=== PATIENT | male | born 1985 | race Caucasian/White ===

== ENCOUNTER 2019-01-12 09:55 | Inpatient (IN) | payer OTHER ==
[~2019-01-12] VITALS: Ht 193 cm; Wt 118.0 kg
[2019-01-12] MEDS ORDERED: BACT800T5 PO (10:16)
[2019-01-12] MEDS ORDERED: NS 1,000 ML IV ONE (10:45)
[2019-01-12] MEDS ORDERED: MORPHINE 4 MG/ML 1ML VIAL/SYRINGE (J2270) IV ONE (10:45)
[2019-01-12 11:18] LABS: BASO # 0.1 10^3/uL (0.0-0.2); BASO % 0.6 % (0.0-1.0); EOS # 0.5 10^3/uL (0.0-0.50); EOS % 4.9 % (0.0-3.0); HEMATOCRIT 44.5 % (42.0-52.0); HEMOGLOBIN 15.4 g/dl (13.5-17.5); LYMPH # 1.3 10^3/uL (1.5-4.5); LYMPH % 12.3 % (24.0-44.0); MEAN CORPUSCULAR HEMOGLOBIN 30.5 pg (27.0-33.0); MEAN CORPUSCULAR HGB CONC 34.6 g/dl (32.0-36.5); MEAN CORPUSCULAR VOLUME 88.1 fl (80.0-96.0); MONO # 0.8 10^3/uL (0.0-0.8); MONO % 7.8 % (0.0-5.0); NEUTROPHILS % 74.2 % (36.0-66.0); PLATELET COUNT, AUTOMATED 236 10^3/uL (150-450); RED BLOOD COUNT 5.05 10^6/uL (4.30-6.10); WHITE BLOOD COUNT 10.8 10^3/uL (4.0-10.0)
--- NOTE | 2019-01-12 11:19 | REP ---
Right elbow for views: I suspect soft tissue edema posteriorly. This should be confirmed clinically. There is no joint effusion. Mineralization and joint spaces are normal. There is no fracture or dislocation. There are are degenerative calcifications in the distal triceps tendon at its insertion on the olecranon. Impression: Probable soft tissue edema posteriorly. Please confirm clinically. Degenerative calcifications in the distal triceps tendon Electronically Signed by Thomas Randall MD 01/12/2019 11:10 A
[2019-01-12 11:42] LABS: BLOOD UREA NITROGEN 17 MG/DL (7-18); C REACTIVE PROTEIN QUANTITATIV 5.23 MG/DL (0.00-0.30); CALCIUM LEVEL 8.6 MG/DL (8.5-10.1); CARBON DIOXIDE LEVEL 27 MEQ/L (21-32); CHLORIDE LEVEL 105 MEQ/L (98-107); CREATININE FOR GFR 1.22 MG/DL (0.70-1.30); GLOMERULAR FILTRATION RATE > 60.0 (>60); GLUCOSE, FASTING 94 MG/DL (70-100); POTASSIUM SERUM 4.1 MEQ/L (3.5-5.1); SODIUM LEVEL 136 MEQ/L (136-145)
[2019-01-12] MEDS ORDERED: VANCOMYCIN HCL 1,000 MG, VIAL MATE ADAPTER 1 EACH in D5W 250 ML IV ONE (12:30)
[2019-01-12 12:46] LABS: ERYTHROCYTE SEDIMENTATION RATE 10 mm/hr (0-15)
[2019-01-12] MEDS ORDERED: KETOROLAC 30 MG/ML VIAL (J1885) IV ONE (13:15)
[2019-01-12 14:43] VITALS: BP 130/63
--- NOTE | 2019-01-12 15:05 | HPEPDOC ---
General Date of Admission Jan 12, 2019 at 13:11 Chief Complaint The patient is a 33-year-old male admitted with a reason for visit of Celluitis Of Rt Elbow Olecranon Bursitis Of Rt Elb. Source: Patient Exam Limitations: No limitations History of Present Illness The patient is a 33 -year-old gentleman who presents to the ER with complains of right elbow pain, swelling, erythema. He reports that last week he had a superficial rash/eczema-like appearance to the right elbow. On Thursday night, he reports waking up with significant pain in his right elbow. He noticed some associated redness. He took a couple of these. He will come the next morning and did not feel right. [place] as having [place] and started on Bactrim as well as Motrin. He reports he has taken 3 doses of Bactrim so far. However, the pain, swelling as well as erythema had progressed since yesterday. The patient had persistent over 10 in intensity, dull, constant, throbbing at times. Reports associated warmth to touch. He does not have a restriction of range of motion he reports, however, reports that he has to move his elbow slow ly otherwise it hurts. Denies any associated fevers/chills or sweats. He did have some nausea this morning but no vomiting. No chest pain/shortness of breath/cough/dizziness/lightheadedness. No change in his bladder or bowel habits. No skin rash elsewhere. Home Medications Scheduled Sulfamethoxazole/Trimethoprim (Bactrim Ds Tablet) 1 Each Tablet, 1 TAB PO BID, (Reported) Allergies Coded Allergies: FISH (Verified Allergy, Severe, THROAT SWELLS,RASH,ITCHY, 01/12/19) amoxicillin (Verified Allergy, Unknown, 01/12/19) Past Medical History Medical History None Surgical History None Family History Father has rheumatoid arthritis Social History * Smoker: Denies Alcohol: occationally Drugs: denies Review of Systems Other systems Negative for 10 systems except as noted under history of present illness Physical Examination General Exam: Positive: Alert, Cooperative, No Acute Distress Eye Exam: Positive: PERRLA ENT Exam: Positive: Mucous membr. moist/pink Chest Exam: Positive: Clear to auscultation, Normal air movement Heart Exam: Positive: Rate Normal, Normal S1, Normal S2 Abdomen Exam: Positive: Soft, Other (nontender) Extremity Exam: Positive: Other (right elbow erythema, warmth. Area of erythema has been marked out8 seems to extend beyond the original he marked area. No fluctuance noted. Tender to touch.) Neuro Exam: Positive: Other (awake, alert, oriented 3. Moving all 4 extremities.) Psych Exam: Positive: Mental status NL Vital Signs Vital Signs Date Time Temp Pulse Resp B/P (MAP) Pulse Ox O2 Delivery O2 Flow Rate FiO2 01/12/19 13:53 99.6 88 17 120/69 (86) 100 Room Air Laboratory Data Labs 24H Laboratory Tests 2 01/12/19 10:49: Immature Granulocyte % (Auto) 0.2, White Blood Count 10.8H, Red Blood Count 5.05, Hemoglobin 15.4, Hematocrit 44.5, Mean Corpuscular Volume 88.1, Mean Corpuscular Hemoglobin 30.5, Mean Corpuscular Hemoglobin Concent 34.6, Red Cell Distribution Width 12.4, Platelet Count 236, Neutrophils (%) (Auto) 74.2H, Lymphocytes (%) (Auto) 12.3L, Monocytes (%) (Auto) 7.8H, Eosinophils (%) (Auto) 4.9H, Basophils (%) (Auto) 0.6, Neutrophils # (Auto) 8.0H, Lymphocytes # (Auto) 1.3L, Monocytes # (Auto) 0.8, Eosinophils # (Auto) 0.5, Basophils # (Auto) 0.1, Nucleated Red Blood Cells % (auto) 0.0, Erythrocyte Sedimentation Rate 10, Anion Gap 4L, Glomerular Filtration Rate > 60.0, Lactic Acid Level 1.0, Blood Urea Nitrogen 17, Creatinine 1.22, Sodium Level 136, Potassium Level 4.1, Chloride Level 105, Carbon Dioxide Level 27, Calcium Level 8.6, C-Reactive Protein, Quantitative 5.23H CBC/BMP Laboratory Tests 01/12/19 10:49 Red Blood Count 5.05, Mean Corpuscular Volume 88.1, Mean Corpuscular Hemoglobin 30.5, Mean Corpuscular Hemoglobin Concent 34.6, Red Cell Distribution Width 12.4, Neutrophils (%) (Auto) 74.2 H, Lymphocytes (%) (Auto) 12.3 L, Monocytes (%) (Auto) 7.8 H, Eosinophils (%) (Auto) 4.9 H, Basophils (%) (Auto) 0.6, Neutrophils # (Auto) 8.0 H, Lymphocytes # (Auto) 1.3 L, Monocytes # (Auto) 0.8, Eosinophils # (Auto) 0.5, Basophils # (Auto) 0.1, Calcium Level 8.6 Microbiology Microbiology 01/12/19 Blood Culture, Received Pending 01/12/19 Blood Culture, Received Pending RAD Interpretation STUDY: right elbow x-ray: Soft tissue edema posteriorly. Degenerative calcifications in triceps tendon. Assessment/Plan Right elbow olecranon bursitis with associated cellulitis with failed outpatient treatment: -IV vancomycin per pharmacy dosing -Call out to orthopedicswill request to see if patient needs any aspiration -Advised elevation -Toradol for pain and inflammation -Elbow x-ray does not show any involvement of bone and ESR is normal -Acetaminophen as needed for fever/pain DVT prophylaxis: -SCDs CODE STATUS: -Full code per my discussion with the patient Disposition: -Admit as an inpatient to general medical floor for further treatment of his right olecranon bursitis with cellulitis with failed outpatient treatment. Anticipated length of stay more than 2 midnights. Anticipate eventual discharge home once medically stable. Plan / VTE VTE Prophylaxis Ordered?: Yes VTE Exclusion Pharmacological: At Low Risk for VTE MARI STARKS MD Jan 12, 2019 15:05
[2019-01-12] MEDS: ACETAMINOPHEN TAB 650MG DOSE (2X325MG) PO PRN ×2 (16:18→22:37)
--- NOTE | 2019-01-12 16:50 | CR ---
DATE OF CONSULTATION: 01/12/2019 CHIEF COMPLAINT: Right elbow pain. HISTORY OF PRESENT ILLNESS: This is a 33-year-old gentleman who has had right elbow pain, swelling and erythema for the past two days. He denies any injury or insect bite. He did note that he had a superficial rash or eczema on the elbow. Then on Thursday night, he had significant pain and redness. The following morning, he went to urgent care and was started on Bactrim. He had taken three doses of Bactrim without any improvement and the pain, swelling and erythema have progressed. He presented to the emergency room (ER) today. He was given vancomycin in the emergency room and states that already since that dose of vancomycin the pain, swelling and erythema is starting to come down. He has had some nausea and chills. No shortness of breath. ALLERGIES: FISH and AMOXICILLIN. PAST MEDICAL HISTORY: None. PAST SURGICAL HISTORY: None. SOCIAL HISTORY: The patient does not smoke cigarettes. He occasionally drinks alcohol. PHYSICAL EXAMINATION: GENERAL: Well-appearing, alert and oriented times three, in no acute distress. VITAL SIGNS: Temperature 99.6, heart rate 88, respiratory rate 17, blood pressure 120/69, oxygen 100% on room air. PULMONARY: Regular, nonlabored breathing. CARDIOVASCULAR: Regular rate and rhythm. ABDOMEN: Soft, nontender. MUSCULOSKELETAL: In the right elbow, there is erythema over the posterior aspect of the elbow including the olecranon. There is tenderness over the olecranon and moderate olecranon bursitis. The erythema does seem to be decreasing from what was previously marked out. The patient has some stiffness with flexion and extension and relatively mild pain. He has no pain with pronation or supination. Normal sensation to light touch in the medial, ulnar and radial distribution. Palpable radial pulse. Intact flexion and extension of the wrist. LABORATORY DATA: White blood cell count 10.8, ESR 10, CRP 5.23. IMAGING: Right elbow x-ray shows soft tissue edema posteriorly and some calcification in the triceps tendon. However, no fracture or other obvious pathology. IMPRESSION: Right olecranon bursitis with associated cellulitis. PLAN: The patient is already improving on IV vancomycin. I would continue this. Trend the C-reactive protein (CRP) to make sure it is going in the right direction and monitor the patient's examination. At this point, I would avoid any aspiration of the elbow or bursa as this does not seem to be an actual septic elbow joint. The bursitis seems to be relatively mild as well. We will follow the patient to make sure that he continues to improve with IV antibiotics.
[2019-01-12] MEDS: KETOROLAC 30 MG/ML VIAL (J1885) IV PRN (18:49)
[2019-01-12 22:00] VITALS: BP 131/72
[2019-01-12] MEDS: traMADol 50 MG TAB PO PRN (23:57)
[2019-01-13] MEDS: KETOROLAC 30 MG/ML VIAL (J1885) IV PRN ×4 (01:01→21:01)
[2019-01-13 06:00] VITALS: BP 131/62
[2019-01-13 06:37] LABS: HEMOGLOBIN 14.3 g/dl (13.5-17.5); MEAN CORPUSCULAR HEMOGLOBIN 30.8 pg (27.0-33.0); MEAN CORPUSCULAR HGB CONC 34.9 g/dl (32.0-36.5); MEAN CORPUSCULAR VOLUME 88.4 fl (80.0-96.0); PLATELET COUNT, AUTOMATED 203 10^3/uL (150-450); RED BLOOD COUNT 4.64 10^6/uL (4.30-6.10); WHITE BLOOD COUNT 11.3 10^3/uL (4.0-10.0)
[2019-01-13 07:05] LABS: ALBUMIN 3.6 GM/DL (3.2-5.2); ALT/SGPT 34 U/L (12-78); BILIRUBIN,TOTAL 1.2 MG/DL (0.2-1.0); BLOOD UREA NITROGEN 13 MG/DL (7-18); CALCIUM LEVEL 8.2 MG/DL (8.5-10.1); CARBON DIOXIDE LEVEL 25 MEQ/L (21-32); CHLORIDE LEVEL 108 MEQ/L (98-107); CREATININE FOR GFR 1.08 MG/DL (0.70-1.30); GLOMERULAR FILTRATION RATE > 60.0 (>60); GLUCOSE, FASTING 111 MG/DL (70-100); MAGNESIUM LEVEL 2.2 MG/DL (1.8-2.4); SODIUM LEVEL 138 MEQ/L (136-145); TOTAL PROTEIN 7.2 GM/DL (6.4-8.2)
[2019-01-13] MEDS: traMADol 50 MG TAB PO PRN (12:10)
--- NOTE | 2019-01-13 13:36 | PHACANCOPD ---
PHARMACY VANCOMYCIN DOSING Pt Demographics Demographics Patient Age:33 , Weight:118.000 , Gender: male Adjusted Body Weight Date: 01/13/19, Adjusted Body Weight: [99] Kg Events Past 24 Hours Events Past 24 Hours: NO: Dialysis, Diuretic Therapy, Change in CrCl, Fever, Elevation in WBC, Pending Diagnostics, Pending Procedures, Other Vancomycin Vancomycin indication: RIGHT ELBOW OLECRANON BURSITIS AND CELLULITIS WITH FAILED RX Vancomycin Target Ranges: 10-20 mcg/ml Vancomycin Load Y/N: Yes Load Dose Date Time Vancomycin Load Dose: Date: Time: Vancomycin Dose Date: 01/13/19. Current Vancomycin Dose: [1G IV Q8H] Intermittent Dosing?: No Labs Labs Item Value Date Time White Blood Count 10.8 10^3/uL H 01/12/19 1049 White Blood Count 11.3 10^3/uL H 01/13/19 0615 Neutrophils # (Auto) 8.0 10^3/uL H 01/12/19 1049 Creatinine 1.22 MG/DL 01/12/19 1049 Creatinine 1.08 MG/DL 01/13/19 0615 C-Reactive Protein, Quantitative 11.40 MG/DL H 01/13/19 0615 C-Reactive Protein, Quantitative 5.23 MG/DL H 01/12/19 1049 Micro Microbiology 01/12/19 Blood Culture - Preliminary, Resulted No growth after 24 hours . All specim... 01/12/19 Blood Culture - Preliminary, Resulted No growth after 24 hours . All specim... Creatinine Clearance Date:01/13/19. Creatinine Clearance: [117ML/MIN]. Pending Labs VANCOMYCIN TROUGH 01/14/19 @1300 Assessment and Plan Maintaining Current Dose?: Yes Reason for dose change: No Dose Change Pharmacist Note Pharmacist Note Date: 01/13/19. Pharmacist note: PT is a 33 year old male being treated with vancomycin for right elbo bursitis and cellulitis. The patient has not been treated with vancomycin here in the past. 1g vancomycin was administered 01/12 @ 13 in the ER. The patient will receive 2g vancomycin iv today @14. Maintenance therapy will consist of 1g iv every 8 hours. A trough is scheduled for 01/14 @ 13:00. We will continue to monitor and adjust the dose as needed. JEFRY LUCIA PHARMACY Jan 13, 2019 13:36
[2019-01-13 14:00] VITALS: BP 137/78
--- NOTE | 2019-01-13 14:12 | IPNPDOC ---
Date Seen The patient was seen on 01/13/19. Progress Note SUBJECTIVE: 33-year-old male presented with right elbow swelling, erythema and pain failed treatment for cellulitis as outpatient. Interval history: Patient reported feeling still generalized ill today but states that his elbow appear to be slightly better than yesterday. Still has significant pain with movement of elbow and erythema surrounding right olecranon. Tmax 99.7 overnight. OBJECTIVE PHYSICAL EXAMINATION: VITAL SIGNS: Please see below. General: No acute distress, Alert Eyes: Normal sclera, EOMI, NIDHI HENT: Atraumatic, neck supple, moist mucous membranes Cardiovascular: Normal rate, normal rhythm. No murmurs appreciated. Pulmonary: Clear to auscultation b/l, no wheezing GI: Soft, nontender, nondistended Skin: Warm and dry Neuro: CN grossly intact. No focal deficits. Strengths equal b/l. Psych: oriented x 3 LABORATORY DATA, IMAGING STUDIES, MICROBIOLOGY: Please see below. DVT prophylaxis ordered?: MANAN ASSESSMENT AND PLAN: Right elbow olecranon bursitis with associated cellulitis failed outpatient treatment: - c/w IV vancomycin. Appear to be improving. - Evaluated by ortho. No surgical intervention/aspiration recommended at this time. - Will keep elbow elevated, c/w supportive care. -Toradol for pain and inflammation - Elbow x-ray does not show any involvement of bone. - CRP trending up but clinically improving. Continue to monitor for now. -Acetaminophen as needed for fever/pain DVT prophylaxis: -SCDs CODE STATUS: FULL CODE Disposition: -Admit as an inpatient to general medical floor for further treatment of his right olecranon bursitis with cellulitis with failed outpatient treatment. Anticipated length of stay more than 2 midnights. Anticipate eventual discharge home once medically stable. VS, I&O, 24H, Fishbone Vital Signs/I&O Vital Signs Date Time Temp Pulse Resp B/P (MAP) Pulse Ox O2 Delivery O2 Flow Rate FiO2 01/13/19 12:40 18 01/13/19 06:00 99.6 72 131/62 (85) 94 01/12/19 13:53 Room Air I&O- Last 24 Hours up to 6 AM 01/13/19 06:00 Intake Total 2210 ml Output Total 1400 ml Balance 810 ml Laboratory Data 24H LABS Laboratory Tests 2 01/13/19 06:15: Nucleated Red Blood Cells % (auto) 0.0, Anion Gap 5L, Glomerular Filtration Rate > 60.0, Blood Urea Nitrogen 13, Creatinine 1.08, Sodium Level 138, Potassium Level 4.0, Chloride Level 108H, Carbon Dioxide Level 25, Calcium Level 8.2L, Aspartate Amino Transf (AST/SGOT) 25, Alanine Aminotransferase (ALT/SGPT) 34, Alkaline Phosphatase 52, Total Bilirubin 1.2H, Total Protein 7.2, Albumin 3.6, M agnesium Level 2.2, C-Reactive Protein, Quantitative 11.40H, Albumin/Globulin Ratio 1.00 CBC/BMP Laboratory Tests 01/13/19 06:15 Red Blood Count 4.64, Mean Corpuscular Volume 88.4, Mean Corpuscular Hemoglobin 30.8, Mean Corpuscular Hemoglobin Concent 34.9, Red Cell Distribution Width 12.4, Calcium Level 8.2 L, Aspartate Amino Transf (AST/SGOT) 25, Alanine Aminotransferase (ALT/SGPT) 34, Alkaline Phosphatase 52, Total Bilirubin 1.2 H, Total Protein 7.2, Albumin 3.6 Microbiology Microbiology 01/12/19 Blood Culture - Preliminary, Resulted No growth after 24 hours . All specim... 01/12/19 Blood Culture - Preliminary, Resulted No growth after 24 hours . All specim... MIGUE FRANK MD Jan 13, 2019 14:12
[2019-01-13] MEDS: VANCOMYCIN HCL 1,000 MG, VIAL MATE ADAPTER 1 EACH in D5W 250 ML IV SCH ×2 (14:17→21:11)
[2019-01-13] MEDS ORDERED: VANCOMYCIN HCL 1,000 MG, VIAL MATE ADAPTER 1 EACH in D5W 250 ML IV ONE (15:00)
[2019-01-13] MEDS: ACETAMINOPHEN TAB 650MG DOSE (2X325MG) PO PRN (17:16)
[2019-01-13 22:00] VITALS: BP 156/100
[2019-01-14] MEDS: KETOROLAC 30 MG/ML VIAL (J1885) IV PRN ×4 (03:42→22:54)
[2019-01-14 06:00] VITALS: BP 134/77
[2019-01-14] MEDS: VANCOMYCIN HCL 1,000 MG, VIAL MATE ADAPTER 1 EACH in D5W 250 ML IV SCH ×3 (06:09→21:43)
[2019-01-14 06:49] LABS: HEMATOCRIT 38.9 % (42.0-52.0); HEMOGLOBIN 13.6 g/dl (13.5-17.5); MEAN CORPUSCULAR HEMOGLOBIN 30.8 pg (27.0-33.0); MEAN CORPUSCULAR VOLUME 88.2 fl (80.0-96.0); PLATELET COUNT, AUTOMATED 210 10^3/uL (150-450); RED BLOOD COUNT 4.41 10^6/uL (4.30-6.10); WHITE BLOOD COUNT 10.4 10^3/uL (4.0-10.0)
[2019-01-14 07:02] LABS: BLOOD UREA NITROGEN 15 MG/DL (7-18); CALCIUM LEVEL 8.4 MG/DL (8.5-10.1); CARBON DIOXIDE LEVEL 25 MEQ/L (21-32); CHLORIDE LEVEL 108 MEQ/L (98-107); CREATININE FOR GFR 1.18 MG/DL (0.70-1.30); GLOMERULAR FILTRATION RATE > 60.0 (>60); GLUCOSE, FASTING 104 MG/DL (70-100); SODIUM LEVEL 139 MEQ/L (136-145)
[2019-01-14] MEDS ORDERED: LIDOCAINE 1% MDV 20ML VIAL SC ONE (13:30)
[2019-01-14 14:00] VITALS: BP 153/80
[2019-01-14] MEDS: traMADol 50 MG TAB PO PRN (14:20)
--- NOTE | 2019-01-14 14:47 | CR ---
DATE OF CONSULTATION: 01/14/[address] Rehman, hospitalist. Chief complaint is right elbow redness and discomfort and warmth. 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 He presented to an urgent care, then was admitted here as an inpatient I believe 01/12/2019 for possible cellulitis and possible olecranon bursitis. He has been afebrile. He has been responding to vancomycin. The patient is ALLERGIC to AMOXICILLIN. I was asked see him today because he felt like there was some increased warmth and that although the area of redness had not changed he indicated that it looked to be a little bit more red. On exam, he is an otherwise healthy gentleman in no acute distress. He is not diaphoretic. He moves his elbow completely normally. He has an area of redness that I mapped out around the posterior aspect of his distal upper arm, around to his medial and lateral elbow and then down into his proximal forearm. He has some fluctuance in his olecranon bursa but there does not appear to be an effusion of his elbow per se with no discomfort and range of motion of the elbow. He is somewhat tender over his olecranon bursa. There is no drainage, but he has a small patch of eczema over the elbow. He wonders if that could of have been the source. There is no streaking up and down the arm. There is no crepitance or any evidence of any air in the tissues. This appears to be an infected olecranon bursitis with some associated cellulitis. The patient was previously seen by Dr. Rosas. There were x-rays obtained, and this according to the report showed some soft tissue edema, some calcification of the triceps. His labs have indicated a white count of 10.8 on 01/12/2019, 11.3 yesterday, and 10.4 today. His sed rate was 10 on 01/12/2019. His CRP was 5.23 on admission, 11.4 yesterday, and down to 10.5 today. His vancomycin trough appears to be low, and would have that adjusted by the medical service or the pharmacy. He is currently getting vancomycin 1 gram every 8. He has remained afebrile throughout his hospital stay with the highest temperature being 99.7, earlier today it was 98.5. His pulse is 60, blood pressure 134/77, so there is no sign of sepsis. Certainly does not appear to be ill. Impression is likely septic olecranon bursitis with some cellulitis. Recommendations: I have suggested that we aspirate fluid off the olecranon bursa, which can often not only make the patient feel better but can help us decrease the bacterial load and hopefully assist in a diagnosis of organism. As of this point, we have negative blood cultures. I obtained consent from the patient for the aspiration, and under sterile conditions aspirated off about 5 mL of primarily serosanguineous, slightly cloudy fluid from his olecranon bursa after numbing it up with some lidocaine. This will be sent off for grams stain culture, aerobic, anaerobic. The patient got immediate release after decompressing this area with this fluid. IMPRESSION: Olecranon bursitis with cellulitis infected. RECOMMENDATIONS At this point, we will await for the gram stain cultures. I did not see any need for cell count as I do not think it would add anything to the picture here as this is not a joint fluid analysis. Would continue with IV antibiotics and would consider adding a secondary agent, but would leave that up to the discretion of the hospitalists. Would recommend K-Pad K heat, which I have added to the orders and discussed with the nurse, and would recommend elevation on a pillow. If this worsens or the redness spreads, please contact us immediately. If he develops fevers, we should be notified. Certainly if he develops pain with range of motion of his elbow or any evidence of infection of the elbow joint, we should be notified. I have also signed off this case to the covering team that starts at 5 p.m. today. Thank you for the consult.
--- NOTE | 2019-01-14 14:47 | PHACANCOPD ---
PHARMACY VANCOMYCIN DOSING Pt Demographics Demographics Patient Age:33 , Weight:118.000 , Gender: male Adjusted Body Weight Date: 01/13/19, Adjusted Body Weight: [99] Kg Vancomycin Vancomycin indication: RIGHT ELBOW OLECRANON BURSITIS AND CELLULITIS WITH FAILED RX Vancomycin Target Ranges: 10-20 mcg/ml Vancomycin Load Y/N: Yes Load Dose Date Time Vancomycin Load Dose: Date: Time: Vancomycin Dose Date: 01/13/19. Current Vancomycin Dose: [1G IV Q8H] Intermittent Dosing?: No Labs Micro Microbiology 01/12/19 Blood Culture - Preliminary, Resulted No Growth after 48 hours. All Specime... 01/12/19 Blood Culture - Preliminary, Resulted No Growth after 48 hours. All Specime... Creatinine Clearance Date:01/13/19. Creatinine Clearance: [117ML/MIN]. Pending Labs VANCOMYCIN TROUGH 01/14/19 @1300 Assessment and Plan Maintaining Current Dose?: No Reason for dose change: Trough too low, No Dose Change Pharmacist Note Pharmacist Note 01/14/19: Day #3 empiric vancomycin therapy. Trough level today resulted at 7.7mcg/ml. As a result, we will provide a 2g loading dose this afternoon and increase the patient's maintenance regimen from 1g IV Q8H to 1500mg IV Q8H to achieve an estimated trough level of ~12mcg/ml (goal trough level 10-20mcg/ml). It is noted that the patient is also receiving IV toradol, and that scr has increased slightly today at 1.18 from 1.08. However, BUN and output appear to remain stable, and today's trough is a good indicator that the patient is clearing the vancomycin well. A follow-up vancomycin trough level has been scheduled to be drawn tomorrow, 01/15/19, at 1300 - to ensure we are reaching therapeutic levels. We will continue to monitor renal function and will further dose adjust if needed. Date: 01/13/19. Pharmacist note: PT is a 33 year old male being treated with vancomycin for right elbo bursitis and cellulitis. The patient has not been treated with vancomycin here in the past. 1g vancomycin was administered 01/12 @13 in the ER. The patient will receive 2g vancomycin iv today @14. Maintenance therapy will consist of 1g iv every 8 hours. A trough is scheduled for 01/14 @ 13:00. We will continue to monitor and adjust the dose as needed. YVETTE ANDERSON PHARMACY Jan 14, 2019 14:47
[2019-01-14] MEDS ORDERED: VANCOMYCIN HCL 1,000 MG, VIAL MATE ADAPTER 1 EACH in D5W 250 ML IV ONE (15:00)
--- NOTE | 2019-01-14 16:26 | IPNPDOC ---
Date Seen The patient was seen on 01/14/19. Progress Note SUBJECTIVE: 33-year-old male presented with right elbow swelling, erythema and pain failed treatment for cellulitis as outpatient. Interval history: Patient was reporting feeling better this morning. However, later in the afternoon noted to have increased erythema and swelling of the R. elbow. No ot her complaints apart from elbow discomfort. Afebrile overnight. OBJECTIVE PHYSICAL EXAMINATION: VITAL SIGNS: Please see below. General: No acute distress, Alert Eyes: Normal sclera, EOMI, NIDHI HENT: Atraumatic, neck supple, moist mucous membranes Cardiovascular: Normal rate, normal rhythm. No murmurs appreciated. Pulmonary: Clear to auscultation b/l, no wheezing GI: Soft, nontender, nondistended Skin: Warm and dry Neuro: CN grossly intact. No focal deficits. Strengths equal b/l. Psych: oriented x 3 LABORATORY DATA, IMAGING STUDIES, MICROBIOLOGY: Please see below. DVT prophylaxis ordered?: MANAN ASSESSMENT AND PLAN: Right elbow olecranon bursitis with associated cellulitis failed outpatient treatment: - c/w IV vancomycin. Will add Zosyn as well to broaden spectrum, given unsatisfactory improvement with vancomycin alone and currently not in therapeutic trough. - Evaluated by ortho. Re-evaluated 01/14 and aspirated elbow for culture. - Will keep elbow elevated, c/w supportive care. -Toradol for pain and inflammation - Elbow x-ray does not show any involvement of bone. - CRP had stabelized. -Acetaminophen as needed for fever/pain DVT prophylaxis: -SCDs CODE STATUS: FULL CODE Disposition: -Admit as an inpatient to general medical floor for further treatment of his right olecranon bursitis with cellulitis with failed outpatient treatment. Anticipated length of stay more than 2 midnights. Anticipate eventual discharge home once medically stable. VS, I&O, 24H, Fishbone Vital Signs/I&O Vital Signs Date Time Temp Pulse Resp B/P (MAP) Pulse Ox O2 Delivery O2 Flow Rate FiO2 01/14/19 14:50 14 01/14/19 14:00 97.8 68 153/80 (104) 99 01/12/19 13:53 Room Air I&O- Last 24 Hours up to 6 AM 01/14/19 06:00 Intake Total 2670 ml Output Total 2100 ml Balance 570 ml Laboratory Data 24H LABS Laboratory Tests 2 01/14/19 05:27: Nucleated Red Blood Cells % (auto) 0.0, Anion Gap 6L, Glomerular Filtration Rate > 60.0, Blood Urea Nitrogen 15, Creatinine 1.18, Sodium Level 139, Potassium Lev el 4.0, Chloride Level 108H, Carbon Dioxide Level 25, Calcium Level 8.4L, C- Reactive Protein, Quantitative 10.50H 01/14/19 13:00: Vancomycin Level Trough 7.7L CBC/BMP Laboratory Tests 01/14/19 05:27 Red Blood Count 4.41, Mean Corpuscular Volume 88.2, Mean Corpuscular Hemoglobin 30.8, Mean Corpuscular Hemoglobin Concent 35.0, Red Cell Distribution Width 12. 2, Calcium Level 8.4 L Microbiology Microbiology 01/12/19 Blood Culture - Preliminary, Resulted No Growth after 48 hours. All Specime... 01/12/19 Blood Culture - Preliminary, Resulted No Growth after 48 hours. All Specime... 01/14/19 Gram Stain, Received Pending 01/14/19 Body Fluid Culture, Received Pending MIGUE FRANK MD Jan 14, 2019 16:26
[2019-01-14] MEDS: metroNIDAZOLE 500 MG in APPROPRIATE DILUENT 1 EA IV SCH (18:26)
[2019-01-14] MEDS: LevoFLOXacin IV 750 MG in APPROPRIATE DILUENT 1 EA IV SCH (19:48)
[2019-01-14 22:00] VITALS: BP 128/68
[2019-01-14] MEDS: VANCOMYCIN HCL 500 MG in D5W MINI-BAG PLUS 100 ML IV SCH (22:54)
[2019-01-15] MEDS: metroNIDAZOLE 500 MG in APPROPRIATE DILUENT 1 EA IV SCH ×3 (00:26→17:19)
[2019-01-15] MEDS: VANCOMYCIN HCL 1,000 MG, VIAL MATE ADAPTER 1 EACH in D5W 250 ML IV SCH ×3 (05:45→22:26)
[2019-01-15] MEDS: KETOROLAC 30 MG/ML VIAL (J1885) IV PRN ×2 (05:58→13:00)
[2019-01-15 06:00] VITALS: BP 121/71
[2019-01-15 06:09] LABS: HEMATOCRIT 38.6 % (42.0-52.0); HEMOGLOBIN 13.6 g/dl (13.5-17.5); MEAN CORPUSCULAR HEMOGLOBIN 30.9 pg (27.0-33.0); MEAN CORPUSCULAR HGB CONC 35.2 g/dl (32.0-36.5); MEAN CORPUSCULAR VOLUME 87.7 fl (80.0-96.0); PLATELET COUNT, AUTOMATED 225 10^3/uL (150-450); WHITE BLOOD COUNT 8.4 10^3/uL (4.0-10.0)
[2019-01-15 06:29] LABS: BLOOD UREA NITROGEN 14 MG/DL (7-18); C REACTIVE PROTEIN QUANTITATIV 7.79 MG/DL (0.00-0.30); CALCIUM LEVEL 8.4 MG/DL (8.5-10.1); CARBON DIOXIDE LEVEL 25 MEQ/L (21-32); CHLORIDE LEVEL 107 MEQ/L (98-107); CREATININE FOR GFR 1.03 MG/DL (0.70-1.30); GLOMERULAR FILTRATION RATE > 60.0 (>60); GLUCOSE, FASTING 108 MG/DL (70-100); SODIUM LEVEL 140 MEQ/L (136-145)
[2019-01-15] MEDS: VANCOMYCIN HCL 500 MG in D5W MINI-BAG PLUS 100 ML IV SCH ×3 (07:22→23:59)
[2019-01-15 09:00] VITALS: BP 120/74
--- NOTE | 2019-01-15 09:19 | IPN ---
DATE: 01/15/2019 SUBJECTIVE: Progressing well. No new complaints. Feels dramatic improvement today compared to yesterday, tolerated the aspiration very well. No neurovascular symptoms into the right hand. No new complaints. OBJECTIVE: He is afebrile with stable vital signs. CRP level has down trended along with the white blood cell count today. Gram stain from the right elbow olecranon aspirate is negative thus far. Cultures are still pending. He is awake, alert and oriented times three, well-appearing in no acute distress. The area of concern marked on the right elbow is retreated significantly from the previous jason. There is some persistent redness and warmth that, but I do not appreciate any palpable fluid collection. His elbow range of motion is excellent, essentially full, normal and pain free, flexion extension and pronosupination. There is no active drainage and the puncture site is non visible and he is fully neurovascular intact distally. ASSESSMENT: Right elbow olecranon bursitis. PLAN: He is progressing very well. I do recommend he continue with broad-spectrum IV antibiotics pending results of aspirate cultures. Anticipate he could be transitioned to oral antibiotics in the near term. No need for surgical intervention at this time. I would recommend he complete a seven day course of oral antibiotics and to follow-up with orthopedics 2-3 days following discharge. Reconsult orthopedics for any worsening or for any new concerns.
[2019-01-15] MEDS: traMADol 50 MG TAB PO PRN ×2 (11:37→20:13)
--- NOTE | 2019-01-15 12:06 | IPNPDOC ---
Date Seen The patient was seen on 01/15/19. Progress Note SUBJECTIVE: 33-year-old male presented with right elbow swelling, erythema and pain failed treatment for cellulitis as outpatient. Interval history: Patient had R. elbow aspiration yesterday due to worsening swelling and pain. Seem to be doing better today although elbow is erythematous. Swelling improved from yesterday but erythema remains unchanged. OBJECTIVE PHYSICAL EXAMINATION: VITAL SIGNS: Please see below. General: No acute distress, Alert Eyes: Normal sclera, EOMI, NIDHI HENT: Atraumatic, neck supple, moist mucous membranes Cardiovascular: Normal rate, normal rhythm. No murmurs appreciated. Pulmonary: Clear to auscultation b/l, no wheezing GI: Soft, nontender, nondistended Skin: Warm and dry Neuro: CN grossly intact. No focal deficits. Strengths equal b/l. Psych: oriented x 3 LABORATORY DATA, IMAGING STUDIES, MICROBIOLOGY: Please see below. DVT prophylaxis ordered?: MNAAN ASSESSMENT AND PLAN: Right elbow olecranon bursitis with associated cellulitis failed outpatient treatment: - c/w IV vancomycin. Added flagyl and levaquin given unsatisfactory improvement with vancomycin alone. Would prefer zosyn/augmentin/unasyn but patient has an amoxicillin allergy. - Evaluated by ortho. Re-evaluated 01/14 and aspirated elbow for culture. - Will keep elbow elevated, c/w supportive care. -Toradol for pain and inflammation - Elbow x-ray does not show any involvement of bone. - CRP had stabelized. -Acetaminophen as needed for fever/pain. - Elbow aspiration by Dr. Todd 01/14. gram stain showed no organisms. f/u culture. DVT prophylaxis: -SCDs CODE STATUS: FULL CODE Disposition: -Admit as an inpatient to general medical floor for further treatment of his ri ght olecranon bursitis with cellulitis with failed outpatient treatment. Anticipated length of stay more than 2 midnights. Anticipate eventual discharge home once medically stable. VS, I&O, Estephania, Lashaun Vital Signs/I&O Vital Signs Date Time Temp Pulse Resp B/P (MAP) Pulse Ox O2 Delivery O2 Flow Rate FiO2 01/15/19 11:37 18 01/15/19 09:00 01/15/19 09:00 97.9 60 98 01/12/19 13:53 Room Air I&O- Last 24 Hours up to 6 AM 01/15/19 06:00 Intake Total 3030 ml Output Total 3440 ml Balance -410 ml Laboratory Data 24H LABS Laboratory Tests 2 01/14/19 13:00: Vancomycin Level Trough 7.7L 01/15/19 05:25: Nucleated Red Blood Cells % (auto) 0.0, Anion Gap 8, Glomerular Filtration Rate > 60.0, Blood Urea Nitrogen 14, Creatinine 1.03, Sodium Level 140, Potassium Level 4.0, Chloride Level 107, Carbon Dioxide Level 25, Calcium Level 8.4L, C- Reactive Protein, Quantitative 7.79H CBC/BMP Laboratory Tests 01/15/19 05:25 Red Blood Count 4.40, Mean Corpuscular Volume 87.7, Mean Corpuscular Hemoglobin 30.9, Mean Corpuscular Hemoglobin Concent 35.2, Red Cell Distribution Width 11.9 , Calcium Level 8.4 L Microbiology Microbiology 01/12/19 Blood Culture - Preliminary, Resulted No Growth after 72 hours. All specime... 01/12/19 Blood Culture - Preliminary, Resulted No Growth after 72 hours. All specime... 01/14/19 Gram Stain - Final, Resulted 01/14/19 Body Fluid Culture, Resulted Pending MIGUE FRANK MD Jan 15, 2019 12:06
[2019-01-15 14:00] VITALS: BP 129/68
[2019-01-15] MEDS: LevoFLOXacin IV 750 MG in APPROPRIATE DILUENT 1 EA IV SCH (18:37)
[2019-01-15] MEDS: ACETAMINOPHEN TAB 650MG DOSE (2X325MG) PO PRN (19:52)
[2019-01-15] MEDS ORDERED: KETOROLAC 30 MG/ML VIAL (J1885) IV ONE (20:00)
[2019-01-15 22:00] VITALS: BP 130/71
[2019-01-16] MEDS: metroNIDAZOLE 500 MG in APPROPRIATE DILUENT 1 EA IV SCH ×3 (01:21→16:38)
[2019-01-16] MEDS: VANCOMYCIN HCL 1,000 MG, VIAL MATE ADAPTER 1 EACH in D5W 250 ML IV SCH ×3 (05:47→21:42)
[2019-01-16 06:00] VITALS: BP 109/63
[2019-01-16] MEDS: ACETAMINOPHEN TAB 650MG DOSE (2X325MG) PO PRN ×4 (06:39→21:42)
[2019-01-16 07:23] LABS: HEMATOCRIT 37.4 % (42.0-52.0); HEMOGLOBIN 13.3 g/dl (13.5-17.5); MEAN CORPUSCULAR HEMOGLOBIN 31.1 pg (27.0-33.0); MEAN CORPUSCULAR HGB CONC 35.6 g/dl (32.0-36.5); MEAN CORPUSCULAR VOLUME 87.6 fl (80.0-96.0); PLATELET COUNT, AUTOMATED 237 10^3/uL (150-450); RED BLOOD COUNT 4.27 10^6/uL (4.30-6.10); WHITE BLOOD COUNT 6.3 10^3/uL (4.0-10.0)
[2019-01-16 07:24] LABS: BLOOD UREA NITROGEN 17 MG/DL (7-18); C REACTIVE PROTEIN QUANTITATIV 4.99 MG/DL (0.00-0.30); CALCIUM LEVEL 8.6 MG/DL (8.5-10.1); CARBON DIOXIDE LEVEL 24 MEQ/L (21-32); CHLORIDE LEVEL 107 MEQ/L (98-107); CREATININE FOR GFR 1.03 MG/DL (0.70-1.30); GLOMERULAR FILTRATION RATE > 60.0 (>60); GLUCOSE, FASTING 105 MG/DL (70-100); POTASSIUM SERUM 3.9 MEQ/L (3.5-5.1); SODIUM LEVEL 140 MEQ/L (136-145)
[2019-01-16] MEDS: VANCOMYCIN HCL 500 MG in D5W MINI-BAG PLUS 100 ML IV SCH ×3 (08:07→23:47)
--- NOTE | 2019-01-16 12:01 | IPNPDOC ---
Date Seen The patient was seen on 01/16/19. Progress Note SUBJECTIVE: 33-year-old male presented with right elbow swelling, erythema and pain failed treatment for cellulitis as outpatient. Interval history: Patient reported feeling fine this morning. Swelling had gone down quite a bit since yesterday and less erythematous. However, still causing him pain/d iscomfort with elbow flexion. OBJECTIVE PHYSICAL EXAMINATION: VITAL SIGNS: Please see below. General: No acute distress, Alert Eyes: Normal sclera, EOMI, NIDHI HENT: Atraumatic, neck supple, moist mucous membranes Cardiovascular: Normal rate, normal rhythm. No murmurs appreciated. Pulmonary: Clear to auscultation b/l, no wheezing GI: Soft, nontender, nondistended Skin: Warm and dry. R. elbow erythematous over the olecranon extending to posterior forearm, improved from day before. Neuro: CN grossly intact. No focal deficits. Strengths equal b/l. Psych: oriented x 3 LABORATORY DATA, IMAGING STUDIES, MICROBIOLOGY: Please see below. DVT prophylaxis ordered?: MANAN ASSESSMENT AND PLAN: Right elbow olecranon bursitis with associated cellulitis failed outpatient treatment: - c/w IV vancomycin. Added flagyl and levaquin given unsatisfactory improvement with vancomycin alone. Would prefer zosyn/augmentin/unasyn but patient has an amoxicillin allergy. - Evaluated by ortho. Re-evaluated 01/14 and aspirated elbow for culture. - Will keep elbow elevated, c/w supportive care. -Toradol for pain and inflammation - Elbow x-ray does not show any involvement of bone. - CRP had stabelized. -Acetaminophen as needed for fever/pain. - Elbow aspiration by Dr. Todd 01/14. gram stain showed no organisms and culture is negative. DVT prophylaxis: -SCDs CODE STATUS: FULL CODE Disposition: -Admit as an inpatient to general medical floor for further treatment of his right olecranon bursitis with cellulitis with failed outpatient treatment. Anticipated length of stay more than 2 midnights. Anticipate eventual discharge home if elbow continues to get better/get worse in the day day or two. VS, I&O, 24H, Lashaun Vital Signs/I&O Vital Signs Date Time Temp Pulse Resp B/P (MAP) Pulse Ox O2 Delivery O2 Flow Rate FiO2 01/16/19 06:00 98.8 55 16 109/63 (78) 99 01/12/19 13:53 Room Air I&O- Last 24 Hours up to 6 AM 01/16/19 06:00 Intake Total 4730 ml Output Total 2455 ml Balance 2275 ml Laboratory Data 24H LABS Laboratory Tests 2 01/15/19 12:53: Vancomycin Level Trough 14.0 01/16/19 06:06: Nucleated Red Blood Cells % (auto) 0.0, Anion Gap 9, Glomerular Filtration Rate > 60.0, Blood Urea Nitrogen 17, Creatinine 1.03, Sodium Level 140, Potassium Level 3.9, Chloride Level 107, Carbon Dioxide Level 24, Calcium Level 8.6, C- Reactive Protein, Quantitative 4.99H CBC/BMP Laboratory Tests 01/16/19 06:06 Red Blood Count 4.27 L, Mean Corpuscular Volume 87.6, Mean Corpuscular Hemoglobin 31.1, Mean Corpuscular Hemoglobin Concent 35.6, Red Cell Distribution Width 12.0, Calcium Level 8.6 Microbiology Microbiology 01/12/19 Blood Culture - Preliminary, Resulted No Growth after 72 hours. All specime... 01/12/19 Blood Culture - Preliminary, Resulted No Growth after 72 hours. All specime... 01/14/19 Gram Stain - Final, Complete 01/14/19 Body Fluid Culture - Final, Complete MIGUE FRANK MD Jan 16, 2019 12:01
[2019-01-16 14:00] VITALS: BP 118/69
[2019-01-16] MEDS: traMADol 50 MG TAB PO PRN (14:23)
--- NOTE | 2019-01-16 14:46 | PHACANCOPD ---
PHARMACY VANCOMYCIN DOSING Pt Demographics Demographics Patient Age:33 , Weight:118.000 , Gender: male Adjusted Body Weight Date: 01/13/19, Adjusted Body Weight: [99] Kg Events Past 24 Hours Events Past 24 Hours: NO: Dialysis, Diuretic Therapy, Change in CrCl, Fever, Elevation in WBC, Pending Diagnostics, Pending Procedures, Other Vancomycin Vancomycin indication: RIGHT ELBOW OLECRANON BURSITIS AND CELLULITIS WITH FAILED RX Vancomycin Target Ranges: 10-20 mcg/ml Vancomycin Load Y/N: Yes Load Dose Date Time Vancomycin Load Dose: Date: Time: Vancomycin Dose Date: 01/16/19. Current Vancomycin Dose: [1500mg iv q8h@22] Date: 01/13/19. Current Vancomycin Dose: [1G IV Q8H] Intermittent Dosing?: No Labs Labs Item Value Date Time White Blood Count 10.4 10^3/uL H 01/14/19 0527 White Blood Count 8.4 10^3/uL 01/15/19 0525 White Blood Count 6.3 10^3/uL 01/16/19 0606 Erythrocyte Sedimentation Rate 10 mm/hr 01/12/19 1049 Creatinine 1.03 MG/DL 01/15/19 0525 C-Reactive Protein, Quantitative 10.50 MG/DL H 01/14/19 0527 C-Reactive Protein, Quantitative 7.79 MG/DL H 01/15/19 0525 C-Reactive Protein, Quantitative 4.99 MG/DL H 01/16/19 0606 Vital Signs Label Value Date Time Patient Temperature 98.8 degrees F 01/16/19 0600 Temperature Source Temporal 01/16/19 0600 Micro Microbiology 01/12/19 Blood Culture - Preliminary, Resulted No Growth after 72 hours. All specime... 01/12/19 Blood Culture - Preliminary, Resulted No Growth after 72 hours. All specime... 01/14/19 Gram Stain - Final, Complete 01/14/19 Body Fluid Culture - Final, Complete Creatinine Clearance Date:01/13/19. Creatinine Clearance: [117ML/MIN]. Pending Labs VANCOMYCIN TROUGH 01/14/19 @1300 Assessment and Plan Maintaining Current Dose?: Yes Reason for dose change: No Dose Change Pharmacist Note Pharmacist Note 01/16: today is day 4 of empiric treatment with Vancomycin, Levaquin, and Flagyl for cellulitis of the elbow. Patient's WBC is within normal limits, he is afebrile, and CRP is trending down. The swelling at the site of infection has decreased since admission but patient still reports pain. His trough today came back at 15.2 so we will continue him on Vancomycin 1500mg IV q8h and continue to monitor him and make adjustments as necessary. 01/14/19: Day #3 empiric vancomycin therapy. Trough level today resulted at 7.7mcg/ml. As a result, we will provide a 2g loading dose this afternoon and increase the patient's maintenance regimen from 1g IV Q8H to 1500mg IV Q8H to achieve an estimated trough level of ~12mcg/ml (goal trough level 10-20mcg/ml). It is noted that the patient is also receiving IV toradol, and that scr has increased slightly today at 1.18 from 1.08. However, BUN and output appear to remain stable, and today's trough is a good indicator that the patient is clearing the vancomycin well. A follow-up vancomycin trough level has been scheduled to be drawn tomorrow, 01/15/19, at 1300 - to ensure we are reaching therapeutic levels. We will continue to monitor renal function and will further dose adjust if needed. Date: 01/13/19. Pharmacist note: PT is a 33 year old male being treated with vancomycin for right elbo bursitis and cellulitis. The patient has not been treated with vancomycin here in the past. 1g vancomycin was administered 01/12 @13 in the ER. The patient will receive 2g vancomycin iv today @14. Maintenance therapy will consist of 1g iv every 8 hours. A trough is scheduled for 01/14 @ 13:00. We will continue to monitor and adjust the dose as needed. GONZALES [facility] Jan 16, 2019 14:46
[2019-01-16] MEDS: LevoFLOXacin IV 750 MG in APPROPRIATE DILUENT 1 EA IV SCH (18:22)
[2019-01-16 18:31] VITALS: BP 117/69
[2019-01-16 20:00] VITALS: BP 122/66
[2019-01-17] VITALS: BP 130/81
[2019-01-17] MEDS: KETOROLAC 30 MG/ML VIAL (J1885) IV PRN ×3 (00:08→14:19)
[2019-01-17] MEDS: metroNIDAZOLE 500 MG in APPROPRIATE DILUENT 1 EA IV SCH ×3 (01:43→19:21)
[2019-01-17] MEDS: VANCOMYCIN HCL 1,000 MG, VIAL MATE ADAPTER 1 EACH in D5W 250 ML IV SCH ×3 (05:44→22:00)
[2019-01-17 07:18] LABS: HEMOGLOBIN 14.2 g/dl (13.5-17.5); MEAN CORPUSCULAR HEMOGLOBIN 31.2 pg (27.0-33.0); MEAN CORPUSCULAR HGB CONC 35.5 g/dl (32.0-36.5); MEAN CORPUSCULAR VOLUME 87.9 fl (80.0-96.0); PLATELET COUNT, AUTOMATED 284 10^3/uL (150-450); RED BLOOD COUNT 4.55 10^6/uL (4.30-6.10); WHITE BLOOD COUNT 6.2 10^3/uL (4.0-10.0)
[2019-01-17 07:37] LABS: BLOOD UREA NITROGEN 17 MG/DL (7-18); CALCIUM LEVEL 8.4 MG/DL (8.5-10.1); CARBON DIOXIDE LEVEL 25 MEQ/L (21-32); CHLORIDE LEVEL 108 MEQ/L (98-107); CREATININE FOR GFR 1.01 MG/DL (0.70-1.30); GLOMERULAR FILTRATION RATE > 60.0 (>60); GLUCOSE, FASTING 106 MG/DL (70-100); SODIUM LEVEL 139 MEQ/L (136-145)
[2019-01-17] MEDS: VANCOMYCIN HCL 500 MG in D5W MINI-BAG PLUS 100 ML IV SCH ×3 (07:38→23:00)
[2019-01-17 08:00] VITALS: BP 113/68
--- NOTE | 2019-01-17 08:51 | IPNPDOC ---
Text Note Date of Service The patient was seen on 01/17/19. NOTE SUBJECTIVE: Patient seen and examined at bedside. No acute overnight events reported. Still complains of right elbow pain, worsens with flexion. Denies chest pain, shortness of breath, headaches, N/V/D, fevers/chills. OBJECTIVE VITAL SIGNS: Please see below. General: NAD, lying comfortably in bed HEENT: NC/AT, EOMI Cardiovascular: +S1S2, RRR Pulmonary: CTA B/L Abd: soft, NT, +BS Skin: #Tattoos, right elbow erythema - appears much improved from demarcated markings, TTT LABORATORY DATA, IMAGING STUDIES, MICROBIOLOGY: Please see below. DVT prophylaxis ordered?: MANAN ASSESSMENT AND PLAN: 33 yo male for right olecranon bursitis/cellulitis failing outpatient treatment: #Right elbow olecranon bursitis/cellulitis - c/w IV vancomycin, flagyl, levaquin - Evaluated by ortho. Re-evaluated 01/14 and aspirated elbow for culture. - Will keep elbow elevated, c/w supportive care. -Toradol for pain and inflammation - Elbow x-ray does not show any involvement of bone. - CRP had stabelized. -Acetaminophen as needed for fever/pain. - Elbow aspiration by Dr. Todd 01/14. gram stain showed no organisms and culture is negative. - f/u ortho DVT prophylaxis: -SCDs CODE STATUS: FULL CODE Disposition: - still receiving IV Abx, pending ortho f/u , clinical improvement VS,Lashaun, I+O VS, Fishbone, I+O Laboratory Tests 01/17/19 06:38 Red Blood Count 4.55, Mean Corpuscular Volume 87.9, Mean Corpuscular Hemoglobin 31.2, Mean Corpuscular Hemoglobin Concent 35.5, Red Cell Distribution Width 11.9, Calcium Level 8.4 L Vital Signs Date Time Temp Pulse Resp B/P (MAP) Pulse Ox O2 Delivery O2 Flow Rate FiO2 01/17/19 00:00 98.9 60 20 130/81 (97) 99 01/12/19 13:53 Room Air I&O- Last 24 Hours up to 6 AM 01/17/19 05:59 Intake Total 2580 ml Output Total 2725 ml Balance -145 ml KAILEE CAMPOVERDE MD Jan 17, 2019 08:51
[2019-01-17 09:38] LABS: C REACTIVE PROTEIN QUANTITATIV 3.14 MG/DL (0.00-0.30)
[2019-01-17 16:00] VITALS: BP 138/91
[2019-01-17 20:00] VITALS: BP 126/80
[2019-01-17] MEDS: traMADol 50 MG TAB PO PRN (20:02)
[2019-01-17] MEDS: LevoFLOXacin IV 750 MG in APPROPRIATE DILUENT 1 EA IV SCH (20:33)
[2019-01-17 23:53] VITALS: BP 148/78
[2019-01-18] MEDS ORDERED: PERCOCET 5MG/325MG TAB PO ONE (00:30)
[2019-01-18] MEDS: metroNIDAZOLE 500 MG in APPROPRIATE DILUENT 1 EA IV SCH ×2 (01:00→08:37)
[2019-01-18] MEDS: VANCOMYCIN HCL 1,000 MG, VIAL MATE ADAPTER 1 EACH in D5W 250 ML IV SCH (06:00)
[2019-01-18] MEDS: VANCOMYCIN HCL 500 MG in D5W MINI-BAG PLUS 100 ML IV SCH (06:25)
[2019-01-18 07:11] LABS: HEMATOCRIT 38.4 % (42.0-52.0); HEMOGLOBIN 13.5 g/dl (13.5-17.5); MEAN CORPUSCULAR HEMOGLOBIN 30.6 pg (27.0-33.0); MEAN CORPUSCULAR HGB CONC 35.2 g/dl (32.0-36.5); MEAN CORPUSCULAR VOLUME 87.1 fl (80.0-96.0); PLATELET COUNT, AUTOMATED 272 10^3/uL (150-450); RED BLOOD COUNT 4.41 10^6/uL (4.30-6.10); WHITE BLOOD COUNT 5.9 10^3/uL (4.0-10.0)
[2019-01-18 07:42] LABS: BLOOD UREA NITROGEN 16 MG/DL (7-18); C REACTIVE PROTEIN QUANTITATIV 1.91 MG/DL (0.00-0.30); CALCIUM LEVEL 8.5 MG/DL (8.5-10.1); CARBON DIOXIDE LEVEL 27 MEQ/L (21-32); CHLORIDE LEVEL 106 MEQ/L (98-107); CREATININE FOR GFR 1.12 MG/DL (0.70-1.30); GLOMERULAR FILTRATION RATE > 60.0 (>60); GLUCOSE, FASTING 99 MG/DL (70-100); POTASSIUM SERUM 4.1 MEQ/L (3.5-5.1); SODIUM LEVEL 139 MEQ/L (136-145)
[2019-01-18 08:00] VITALS: BP 128/81
[2019-01-18] MEDS ORDERED: LEVA750T7 PO (10:27)
--- NOTE | 2019-01-18 14:44 | DS.PDOC ---
Discharge Summary General Date of Admission Jan 12, 2019 at 13:11 Date of Discharge 01/18/2019 Discharge Summary PROCEDURES PERFORMED DURING STAY: [None]. ADMITTING DIAGNOSES / DISCHARGE DIAGNOSES: Right elbow olecranon bursitis with associated cellulitis DVT prophylaxis: COMPLICATIONS/CHIEF COMPLAINT: Redness / warmth / swelling / tenderness of right elbow HISTORY OF PRESENT ILLNESS: Patient is a 33-year-old male with no significant PMHx who presented to the ER with elbow pain / swelling / warmth and redness. In the emergency room, patient was suspected to have bursitis and was admitted to the hospital service for further evaluation and treatment. Orthopedic surgery was called on c onsultation. HOSPITAL COURSE: Right elbow olecranon bursitis with associated cellulitis - Patient has failed outpatient antibiotics with Bactrim - Clinically patient has had improvement in his right arm cellulitis; progression, no warmth, tenderness, swelling, and maintains full range of motion - Remains afebrile - No leukocytosis; CRP continues to trend down - Old cultures 01/12 negative after 5 days, Culture from aspirate on 01/14: Negative, MRSA screen : Negative - Will DC Vancomycin and Flagyl - c/w Levaquin for completion of antibiotic course - Will have outpatient f/u with Orthopedic surgery DVT prophylaxis - c/w SCDs DISCHARGE MEDICATIONS: Please see below. ALLERGIES: Please see below. PHYSICAL EXAMINATION ON DISCHARGE: Vitals (See below) General: Lying in bed, no acute distress, comfortable, AAOx3 HEENT: NC, AT CVS: RRR, +S1S2 Lungs: Fair air entry b/l, auscultation without any wheezing, rales or rhonchi Abdomen: Soft, ND, NT Extremities: - Edema, - Calf tenderness Skin: Area of redness, warmth and tenderness has regressed significantly from demarcation lines on right elbow; patient maintains full range of motion of his right elbow LABORATORY DATA: Please see below. ACTIVITY: [As tolerated]. DISCHARGE PLAN: Follow-up with Dr. Jon Smith within 7 days Remain compliant with treatment plan and medications Return to the ER if you experience any problems DISPOSITION: Home DISCHARGE CONDITION: [Stable]. TIME SPENT ON DISCHARGE: Greater than [35] minutes. Vital Signs/I&Os Vital Signs Date Time Temp Pulse Resp B/P (MAP) Pulse Ox O2 Delivery O2 Flow Rate FiO2 01/18/19 08:00 98.2 59 18 128/81 (97) 99 01/12/19 13:53 Room Air I&O- Last 24 Hours up to 6 AM 01/18/19 06:00 Intake Total 2125 ml Output Total 1900 ml Balance 225 ml Laboratory Data Labs 24H Laboratory Tests 2 01/18/19 06:40: Nucleated Red Blood Cells % (auto) 0.0, Anion Gap 6L, Glomerular Filtration Rate > 60.0, Blood Urea Nitrogen 16, Creatinine 1.12, Sodium Level 139, Potassium Level 4.1, Chloride Level 106, Carbon Dioxide Level 27, Calcium Level 8.5, C- Reactive Protein, Quantitative 1.91H CBC/BMP Laboratory Tests 01/18/19 06:40 Red Blood Count 4.41, Mean Corpuscular Volume 87.1, Mean Corpuscular Hemoglobin 30.6, Mean Corpuscular Hemoglobin Concent 35.2, Red Cell Distribution Width 11.9, Calcium Level 8.5 Microbiology Microbiology 01/12/19 Blood Culture - Final, Complete NO GROWTH AFTER 5 DAYS 01/12/19 Blood Culture - Final, Complete NO GROWTH AFTER 5 DAYS 01/17/19 MRSA Screen - Final, Complete 01/14/19 Gram Stain - Final, Complete 01/14/19 Body Fluid Culture - Final, Complete Discharge Medications Scheduled Levofloxacin (Levaquin) 750 Mg Tablet, 750 MG PO DAILY Allergies Coded Allergies: FISH (Verified Allergy, Severe, THROAT SWELLS,RASH,ITCHY, 01/12/19) amoxicillin (Verified Allergy, Unknown, 01/12/19) ARSALAN VALLES MD Jan 18, 2019 14:44
== END 2019-01-18 13:10 | disposition home or self-care (01) | DRG 603 ==
LOC: M ED 09:55 → M ED INP 13:11 → M MSPAV 14:43 → M PED 01-16 15:20
PROVIDERS: ADMIT Internal Medicine; ATTEND Internal Medicine
PROC: 0M933ZZ Drainage of Right Elbow Bursa and Ligament, Percutaneous Approach (ICD-10-PCS; principal; 2019-01-14)
DX: L03.113 Cellulitis of right upper limb (principal); M70.21 Olecranon bursitis, right elbow; Z88.0 Allergy status to penicillin; Z91.013 Allergy to seafood

== ENCOUNTER 2019-07-11 12:05 | Emergency (ER) | payer OTHER ==
[~2019-07-11] VITALS: Ht 193 cm; Wt 119.9 kg
[~2019-07-11 12:05] MED LIST: BACT800T5 PO; LEVA750T7 PO
[2019-07-11] MEDS ORDERED: LIDOCAINE 2% MDV 20 ML VIAL SC ONE (14:00)
--- NOTE | 2019-07-11 14:22 | REP ---
LEFT HAND SERIES: Four views. HISTORY: Laceration. FINDINGS: Four views of the left hand are obtained. There is a large radiolucent dressing overlying the index finger. There is soft tissue irregularity and swelling at the index, distal phalanx. There is no evidence of fracture, subluxation, or opaque foreign body. Electronically Signed by Andrés Dominguez MD 07/11/2019 06:34 P
[2019-07-11] MEDS ORDERED: DOXYCYCLINE HYCLATE 100 MG TAB PO ONE (15:15)
[2019-07-11] MEDS ORDERED: PERC5TAB12 PO (15:17)
[2019-07-11] MEDS ORDERED: DOXY100C37 PO (15:17)
[2019-07-11 15:32] VITALS: BP 144/95
== END 2019-07-11 15:33 | disposition home or self-care (01) ==
LOC: M ED 12:05
DX: S61.211S Laceration without foreign body of left index finger without damage to nail, sequela (principal); Y92.009 Unspecified place in unspecified non-institutional (private) residence as the place of occurrence of the external cause; W27.8XXA Contact with other nonpowered hand tool, initial encounter; Z88.0 Allergy status to penicillin; Z91.013 Allergy to seafood